=== PATIENT | female | born 1990 | race Caucasian/White ===

== ENCOUNTER 2017-02-22 06:53 | Day surgery (SDC) | payer MEDICAID ==
[2017-02-22 07:53] VITALS: RESP 20; TEMP 97.8
[2017-02-22] MEDS ORDERED: Propofol 10 mg/ml Inj (20 ML) ONE (09:04)
[2017-02-22 09:09] VITALS: O2SAT 100
[2017-02-22 10:11] VITALS: BP 123/66; PULSE 73
== END 2017-02-22 10:11 | disposition home or self-care (01) ==
LOC: C.ENDO 06:53
PROVIDERS: ATTEND Internal Medicine Gastroenterology
DX: E66.01 Morbid (severe) obesity due to excess calories (principal); K29.70 Gastritis, unspecified, without bleeding
CPT/HCPCS: 43239; 82948; 84703; 88305; 88313; 88342; J2704